=== PATIENT | female | born 1950 | race Caucasian/White ===

== ENCOUNTER 2021-03-09 10:04 | Emergency (ER) | payer MEDICARE, OTHER ==
[2021-03-09 12:01] LABS: BASOPHIL 0.4 % (0-2); EOSINOPHIL 4.1 % (0-7); HCT 37.2 % (37.0-47.0); LYMPHOCYTE 20.9 % (15-48); MCH 29.8 pg (25.0-31.0); MCHC 32.3 g/dL (32.0-36.0); MCV 92.3 fL (78.0-100.0); MONOCYTE 9.2 % (0-12); MPV 11.4 fL (6.0-9.5); NEUTROPHIL 64.9 % (41-80); NRBC 0; PLT 233 K/uL (150-400); RBC 4.03 M/uL (4.20-5.40); RDW 13.7 % (11.5-14.0); WBC 7.8 K/uL (4.0-10.5)
[2021-03-09 12:14] LABS: ALBUMIN 3.5 g/dL (3.4-5.0); BILIRUBIN - TOTAL 0.2 mg/dL (0.2-1.0); BUN/CREAT RATIO (CALC) 11.4 RATIO; CREATININE 1.05 mg/dL (0.51-0.95); GLOBULIN (CALCULATION) 3.2 g/dL; POTASSIUM 3.9 mmol/L (3.5-5.1); TOTAL PROTEIN 6.7 g/dL (6.4-8.2)
[2021-03-09 12:50] LABS: BILIRUBIN NEGATIVE (NEGATIVE); BLOOD NEGATIVE Ery/uL (NEGATIVE); CLARITY CLEAR (CLEAR); COLOR YELLOW (YELLOW); GLUCOSE (U) NORMAL (NORMAL); LEUKOCYTES NEGATIVE Leu/uL (NEGATIVE); NITRITE NEGATIVE (NEGATIVE); PROTEIN NEGATIVE (NEGATIVE); UROBILINOGEN 0.2 mg/dL (0.2-1.0)
[2021-03-09] MEDS ORDERED: CEPHALEXIN500 MG PO (13:16)
== END 2021-03-09 13:44 | disposition home or self-care (01) ==
LOC: FER 10:04
PROVIDERS: Emergency Medicine
DX: S01.01XA Laceration without foreign body of scalp, initial encounter (principal); R55 Syncope and collapse; E11.9 Type 2 diabetes mellitus without complications; J45.909 Unspecified asthma, uncomplicated; Z88.8 Allergy status to other drugs, medicaments and biological substances; W07.XXXA Fall from chair, initial encounter
CPT/HCPCS: 36415; 70450; 71045; 80053; 81003; 84443; 84484; 85025; 93005; J2001